=== PATIENT | male | born 1985 | race Caucasian/White ===

== ENCOUNTER 2021-06-19 17:35 | Emergency (ER) | payer OTHER, SELFPAY ==
[2021-06-19 19:20] VITALS: BP 118/60; PULSE 54; RESP 20; TEMP 36.8; O2SAT 100; BMI 25.8
--- NOTE | 2021-06-19 20:07 | HMH.EDUTC ---
[facility] [place] Clinical Impression: Encounter for laboratory testing for COVID-19 virus Disposition: Home, Self-Care Condition on Discharge: Good Instructions: DI for COVID-19 (Suspected or Confirmed ), Coronavirus Disease 2019, Preventing the Spread of Coronavirus Discharge Instructions Additional Instructions: *Monitor Temp, Over the counter Motrin or Tylenol as directed/as needed Tylenol every 4 hours and Motrin every 6 hours (as long as your family doctor has told you that you can take it) for fever or pain. and straight to ER if unable to lower temp less than 101.0 after medication given Follow up IMMEDIATELY for new or worsening symptoms or no Noticeable improvement over the next 48-72 hours. 911 for difficulty breathing or swallowing You were tested for today for COVID19 your test result should be back in the next 24-48 hours, you may call to the [facility] to see if your test results are back in the next 48 hours [phone] [facility] hours are 9am-9pm You was given a handout with instructions for Self Quarantine and Self isolation for while you wait on test results and what to do if they are positive If you are positive the Health Dept will be contacting you also Make sure to take your Vitamins Vit. C Vit D and Zinc if you can take them Referrals: Provider,Referral, MD [Primary Care Provider] - As needed Time of Disposition: 20:09 Medical Decision Making - Luis Inquiry Pt receiving controlled substance: No Luis was queried for this patient: No Vital Signs: 06/19/21 19:20 Temperature 98.2 F Temperature Source Temporal Artery Scan Pulse Rate [Right Brachial] 54 L Respiratory Rate 20 Blood Pressure [Right Arm] 118/60 Blood Pressure Mean [Right Arm] 79 Blood Pressure Source [Right Arm] Automatic Cuff Blood Pressure Position [Right Arm] Sitting 02 Sat by Pulse Oximetry 100 Oxygen Delivery Method Room Air Orders (Tests/Meds): ORDERS Category Date Time Status Covid-19 Nasal PCR ([facility]) Routine Lab 06/19/21 19:16 Ordered [facility] [place] HPI - General Stated complaint: covid test Time Seen by Provider: 06/19/21 20:07 Mode of Arrival: Ambulatory Source of Information: Patient Limitations: No Limitations Description of Symptoms (Recalled from Triage Doc. by RN): COVID TEST, DENIES EXPOSURE OR SYMPTOMS HEENT Symptoms (Recalled from RN notes): No Resp Symptoms (Recalled from RN notes): No Skin Symptoms (Recalled from RN notes): No MS Symptoms (Recalled from RN notes): No Functional Status (Recalled from RN notes): WNL - History of Present Illness Provider Complaint: Patient states that his kids recently started school and one of them was in the room with another child that was coughing so he came in to get tested to make sure he doesnt have it so he can get the vaccine soon - Related Data Allergies Allergy/AdvReac Type Severity Reaction Status Date / Time No Known Allergies Allergy Verified 06/19/21 18:36 - Worker's Comp Is this a Worker's Comp case?: No [facility] History - Hepatitis A Screen Drug use history?: No High risk sexual behaviors?: No History of sexually transmitted infection?: No Currently employed?: No Childcare worker?: No Do you have indoor plumbing?: Yes Do you have electricity?: Yes Attestation statement:: This patient has been screened for Hepatitis A risk factors. I have reviewed the patient's past medical history: Yes Medical History: Denies:: Cancer, Diabetes Mellitus Type 1, Diabetes Mellitus Type 2, MRSA Amputation: No - Social History Smoking Status: Unknown if ever smoked Tobacco Type: smokeless tobacco # Packs/Day (cigarettes): 0 Alcohol Intake: never Occupational Status: employed Housing: house Household Members: spouse, children ROS Obtained: Yes All systems reviewed & no additional complaints, Yes Systems reviewed as appropriate & no additional complaints - Constitutional Constitutional: Reports system reviewed and no additional complaints, except as do
[2021-06-19 20:08] VITALS: BP 118/60; PULSE 54; RESP 20; TEMP 36.8; O2SAT 100
== END 2021-06-19 20:16 | disposition home or self-care (01) ==
PROVIDERS: Emergency Provider Nurse Practitioner
DX: Z20.822 Contact with and (suspected) exposure to COVID-19 (principal)
CPT/HCPCS: 99202; G0463; U0003

== ENCOUNTER 2023-12-19 07:50 | Emergency (ER) | payer OTHER, SELFPAY ==
[2023-12-19 08:01] VITALS: BP 141/86; PULSE 81; RESP 16; TEMP 36.8; O2SAT 97; BMI 26.4
--- NOTE | 2023-12-19 08:02 | ED_ITS ---
Discharge Plan Disposition Patient Disposition: Home, Self-Care Condition: Good Prescriptions Prescriptions: New ibuprofen 400 mg tablet 400 mg PO Q6H PRN (Reason: pain, fever) Qty: 30 0RF Referrals Follow up/Referrals: Provider,Referral, MD [Primary Care Provider] - See instructions Activity Restrictions/Add. Instructions Additional Instructions/Restrictions: You were evaluated in the ER. You are appropriate for discharge at this time. Take Tylenol or ibuprofen if needed for pain and fever. DayQuil and NyQuil have Tylenol in them, so do not take additional Tylenol if you are taking these medications. Drink plenty of water and get extra rest in order to recover sooner. Find the results of your viral swab in the patient portal. Make an appointment with your primary care physician for reevaluation in a few days. Return to the ER with new, worsening, or otherwise concerning symptoms. Clinical Impressions Clinical Impression: Congested nose, Body aches Stand Alone Forms Stand Alone Forms: Work/School Release Discharge ED Provider: Chely Loco General Adult HPI General Stated complaint: body aches, weak, chills Time Seen by Provider: 12/19/23 07:54 History of Present Illness HPI narrative: Otherwise healthy 38-year-old male presents to the ER with concerns of congestion and bodyaches. Patient states his symptoms onset yesterday. He sta reji he took NyQuil last night and DayQuil this morning. Patient states he does not know of any ill exposures but he does work. He would like viral testing and a work note. He denies any fevers, vomiting, diarrhea, chest pain, shortness of breath, or other associated symptoms at this time. Related Data Previous Rx's Medication Instructions Recorded ibuprofen 400 mg tablet 400 mg PO Q6H PRN pain, fever #30 12/19/23 tabs Allergies Allergy/AdvReac Type Severity Reaction Status Date / Time No Known Allergies Allergy Verified 06/19/21 18:36 [facility] Disclaimer: The information contained in this section may have been updated after the patient was seen, as this information can be updated by other users. Social History Smoking Status: Unknown if ever smoked second hand exposure: No alcohol intake: never current occupational status: employed Travel in the last 8 weeks: Inside the [place] household members: spouse and children housing: house caffeine: No ROS Obtained: Yes All systems reviewed & no additional complaints except as do cumented Constitutional Constitutional: Reports body ache, Denies chills, Denies fever(s), Denies headache(s) and Denies weakness Eyes Eyes: Denies change in vision ENT Ears, Nose, Mouth, and Throat: Denies dizziness, Denies headache(s), Reports nasal congestion and Denies sore throat Cardiovascular Cardiovascular: Denies chest pain, Denies dyspnea and Denies leg edema Respiratory Respiratory: Denies cough and Denies dyspnea Gastrointestinal Gastrointestingal: Denies constipation, diarrhea, nausea or vomiting Genitourinary Male Genitourinary: Denies difficulty urinating Musculoskeletal Musculoskeletal: Denies arthralgias, Denies myalgias, Denies numbness and Denies tingling Integumentary/Breasts Skin/Breast: Denies change in pigmentation Neurologic Neurologic: Denies dizziness, Denies headache(s), Denies numbness, Denies tingling and Denies weakness Physical Exam General General appearance: alert and in no apparent distress Head Head exam: atraumatic and normocephalic Eye Eye exam: Present PERRL and EOMI ENT ENT exam: Present mucous membranes moist Neck Neck exam: Present normal inspection and full ROM Chest Chest inspection: Present symmetric chest wall rise Respiratory Respiratory exam: Present normal lung sounds bilaterally; Absent respiratory distress or stridor Cardiovascular Cardiovascular exam: Present regular rate and normal rhythm Abdominal Exam Abdominal exam: Present soft; Absent distention, tenderness, guarding or rebound Extremities Exam Extremities exam: Present full ROM Neurological Exam Neurological exam: Present alert and oriented X3; Absent motor sensory deficit Psychiatric Psychiatric exam: Present normal affect and normal mood Skin Skin exam: Present warm and dry Medical Decision Making Medical Records Medical records reviewed: Yes I reviewed the patient's medical records. Luis Inquiry Pt receiving controlled substance: No Orders (Tests/Meds): ED MEDICATIONS Discontinued Medications Generic Name Dose Route Start Last Admin Trade Name Freq PRN Reason Stop Dose Admin Ibuprofen 600 mg 12/19/23 07:58 Ibuprofen 600 Mg Tablet PO 12/19/23 07:59 ONCE ONE ORDERS Category Date Time Status Rapid PCR Covid and Flu A/B Stat Lab 12/19/23 07:58 Ordered Medical Decision Narrative: In summary, 38-year-old male presents to the ER with concerns of 1 day of bodyaches and congestion. Differential diagnosis includes but is not limited to viral syndrome including COVID, influenza, other virus, I did consider other etiologies such as dehydration, muscle spasm, however the onset of his symptoms is most convincing for a viral process. Patient has been able to tolerate oral intake and has not had any volume losses. Low suspicion for dehydration or electrolyte abnormalities. On exam patient is in no acute distress, hemodynamically stable, afebrile. Lungs clear to auscultation bilaterally, abdomen soft, nontender, nondistended, no findings of traumatic injury on exam, GCS 15, no focal deficits. Patient did request viral testing and a work note. COVID/flu swab was sent out. Patient has no comorbidities that would increase his risk for complications of these viruses. We discussed management of these viruses if they are present and patient is comfortable with the plan for discharge and [id number] management. I did prescribe ibuprofen for the patient as he only has NyQuil/DayQuil at home. I instructed him to find the results of the viral swab in the patient portal. Patient was given instructions on symptomatic management, follow up instructions, and return precautions for the emergency department. Patient indicated understanding and was discharged in stable condition. Critical Care Critical Care Time Critical Care Time: No
[2023-12-19 08:08] LABS: Coronavirus 19, PCR Not Detected (NotDetected); Influenza A, PCR Not Detected (NotDetected)
[2023-12-19] MEDS: IBUPROFEN 600 MG TABLET PO (08:15)
[2023-12-19 08:19] VITALS: BP 146/83; PULSE 71; RESP 16; TEMP 36.8; O2SAT 93
[2023-12-19 08:40] LABS: Influenza B, PCR Detected (NotDetected)
== END 2023-12-19 08:20 | disposition home or self-care (01) ==
PROVIDERS: Emergency Provider Emergency Medicine
DX: J10.1 Influenza due to other identified influenza virus with other respiratory manifestations (principal); R09.81 Nasal congestion; M79.18 Myalgia, other site
CPT/HCPCS: 87636; 99283

== ENCOUNTER 2025-09-13 18:06 | Observation (INO) | payer OTHER, SELFPAY ==
[2025-09-13 18:22] VITALS: BP 132/98; PULSE 79; RESP 18; TEMP 36.8; O2SAT 97; BMI 24.4
[2025-09-13 18:39] LABS: Microscopic, Urine URINE MICROSCOPIC (MICROSCOPIC)
[2025-09-13 18:40] LABS: Color,Urine YELLOW (Yellow); Glucose,Urine (UA) Negative (Negative); Ketones,Urine 1+ (Negative); Leukocyte Esterase,Urine Negative (Negative); PH,Urine 6.0 (5.0-8.5); Protein,Urine Negative (Negative); Urobilinogen,Urine 0.2 EU/dl (0.2)
--- NOTE | 2025-09-13 18:45 | CT_ITS ---
PROCEDURE INFORMATION: Exam: CT Abdomen And Pelvis With Contrast Exam date and time: 09/13/2025 7:28 PM Age: 40 years old Clinical indication: Abdominal pain; Additional info: Rlq pain, possible appendicitis TECHNIQUE: Imaging protocol: Computed tomography of the abdomen and pelvis with contrast. Radiation optimization: All CT scans at this facility use at least one of these dose optimization techniques: automated exposure control; mA and/or kV adjustment per patient size (includes targeted exams where dose is matched to clinical indication); or iterative reconstruction. Contrast material: ISOVUE; Contrast volume: 75 ml; Contrast route: IV; COMPARISON: CR XR LUMBAR SPINE 2-3V 01/26/2020 1:09 PM FINDINGS: Liver: Normal. No mass. Gallbladder and biliary ducts: Normal. No calcified stones. No ductal dilation. Pancreas: Normal. No ductal dilation. Spleen: Normal. No splenomegaly. Adrenal glands: Normal. No mass. Kidneys and ureters: Normal. No hydronephrosis. Stomach and bowel: Moderate thickening and inflammatory changes of the cecum colon which can be seen with infectious or inflammatory colitis. Appendix: Mild thickening at the base of the appendix with the appendix measuring 5 mm in diameter without inflammatory changes, and containing appendicoliths. Intraperitoneal space: Unremarkable. No free air. No significant fluid collection. Vasculature: Unremarkable. No abdominal aortic aneurysm. Lymph nodes: Unremarkable. No enlarged lymph nodes. Urinary bladder: Unremarkable as visualized. Reproductive: Unremarkable as visualized. Bones/joints: Mild loss of intervertebral disc space with degenerative changes involving L3 through S1. Soft tissues: Normal. IMPRESSION: 1. Moderate thickening and inflammatory changes involving the cecum of the colon which can be seen with infectious or inflammatory colitis. 2. Mild thickening at the base of the appendix with the appendix measuring 5 mm in diameter without inflammatory changes, and containing appendicoliths.
--- NOTE | 2025-09-13 18:46 | ED_ITS ---
Discharge Plan Disposition Patient Disposition: Admitted Prescriptions Prescriptions: No Action ibuprofen 400 mg tablet 400 mg PO Q6H PRN (Reason: pain, fever) Qty: 30 0RF Referrals Follow up/Referrals: Provider,Referral, [Primary Care Provider, Medical] - See instructions Clinical Impressions Clinical Impression: Colitis, Abdominal pain, RLQ, Hematuria Instructions Patient Instructions: DI for Acute Abdominal Pain Print Language Print Language: Qatari Discharge ED Provider: Jarad Cormier General Adult HPI General Chief complaint: Abdominal Pain Stated complaint: abdominal pain x 3 days Time Seen by Provider: 09/13/25 18:35 Mode of Arrival: Ambulatory Source of Information: Patient Description of Symptoms (Recalled from ER Triage Doc. by RN): patient presents for abdominal apoin that wraps around his back. the patient stated 4 weeks ago that he noticed his right testicle was more swollen than the other. he denies any urinary issues other than black urine the patient stated his abodminal pain started in the last few days and is intermittent in nature. when the pain starts it is severe and a 10/10. History of Present Illness HPI narrative: Sergio Delgado is a 40y male with a history of previous brain surgery but not on any medication who presents to the emergency department for complaints of abdominal pain. Patient states that 4 weeks ago, he had pain in his right testicle that lasted for approximately a week. He states that he has since not had any testicle pain. Started 3 days ago, he started develop lower abdominal pain that is worse on the right side. He states that today it got more severe and is worse with movements and bumps in the road. He reports objective fevers. He states that his stool was loose and dark today. He also notes dark urine. He has not had any abdominal surgeries. Related Data Previous Rx's ?Medication ?Instructions ?Recorded ibuprofen 400 mg tablet 400 mg PO Q6H PRN pain, feve r #30 12/19/23 tabs Allergies Allergy/AdvReac Type Severity Reaction Status Date / Time No Known Allergies Allergy Verified 12/19/23 08:12 [facility] Disclaimer: The information contained in this section may have been updated after the patient was seen, as this information can be updated by other users. Social History Smoking Status: Heavy tobacco smoker tobacco type: smokeless tobacco second hand exposure: No alcohol intake: never current occupational status: employed Travel in the last 8 weeks?: [place] the [place] household members: spouse and children housing: house caffeine: No Have you lived/traveled outside [place] in past 30 days?: No Contact w/someone who lives/traveled outside [place] past 30 days?: No Exposure to someone with infectious disease in past 14 days?: No Do you have a fever (greater than 100.4 F or 38 C)?: No Have you tested positive for COVID-19?: No Exposed to someone with COVID-19 in past 14 days?: No Do you have a sore throat?: No Do you have a cough?: No Do you have any weakness?: No Do you have any diarrhea?: No Are you experiencing any unusual bleeding?: No Do you have any muscle aches/pain?: No Do you have any abdominal pain?: No Are you experiencing loss of taste or smell?: No ROS Obtained: Yes Systems reviewed as appropriate & no additional complaints except as documented Physical Exam General General appearance: alert and in no apparent distress Head Head exam: atraumatic Eye Eye exam: Present normal appearance ENT ENT exam: Present normal external ear exam Neck Neck exam: Present full ROM Chest Chest inspection: Present symmetric chest wall rise Respiratory Respiratory exam: Present normal lung sounds bilaterally; Absent respiratory distress, wheezes or stridor Cardiovascular Cardiovascular exam: Present regular rate and normal rhythm Abdominal Exam Abdominal exam: Present soft, tenderness (Right lower quadrant), guarding (Right lower quadrant), obturator sign, heel tap sign, Rovsing's sign and tenderness at McBurney's Point; Absent rebound exam: Present normal inspection, normal testicular lie and circumcised; Absent testicular tenderness, urethral discharge or scrotal swelling Extremities Exam Extremities exam: Present normal inspection Back Exam Back exam: Present normal inspection Neurological Exam Neurological exam: Present alert and oriented X3 Psychiatric Psychiatric exam: Present normal affect Skin Skin exam: Present warm and dry Medical Decision Making Medical Records Screening: Per USPSTF and CDC recommendations, given the prevalence of disease in our region, it is our hospital?s policy to screen for HIV and viral Hepatitis for all patients aged 18 and over and those with ongoing risk factors. Luis Inquiry Pt receiving controlled substance: No Vital Signs: 09/13/25 18:22 Temperature 98.2 F Temperature Source Oral Pulse Rate [Right Radial] 79 Respiratory Rate 18 Blood Pressure [Right Arm] 132/98 H Blood Pressure Mean [Right Arm] 109 Blood Pressure Source [Right Arm] Automatic Cuff Blood Pressure Position [Right Arm] Sitting 02 Sat by Pulse Oximetry 97 Oxygen Delivery Method Room Air Lab Data Lab Results 09/13/25 18:29: Urine Color Yellow, Urine Appearance Sl cloudy, Urine pH 6.0, Ur Specific Mccracken >= 1.030, Urine Protein Negative, Urine Glucose (UA) Negative, Urine Ketones 1+, Urine Blood 2+ A, Urine Nitrate Negative, Urine Bilirubin Negative, Urine Urobilinogen 0.2, Ur Leukocyte Esterase Negative, Urine RBC 20- 50, Urine WBC 3-5, Ur Squamous Epith Cells 5-10, Urine Bacteria 1+, Urine Mucus 4+ 09/13/25 18:40: WBC 14.6 H, RBC 4.56 L, Hgb 14.2, Hct 40.4 L, MCV 88.6, MCH 31.1, MCHC 35.1, RDW 12.9, Plt Count 223, MPV 10.8 H, Neut % (Auto) 64.0, Lymph % (Auto) 21.9, Mcclain % (Auto) 9.2, Eos % (Auto) 3.9, Baso % (Auto) 0.5, Neut # (Auto) 9.3 H, Lymph # (Auto) 3.2, Mcclain # (Auto) 1.3 H, Eos # (Auto) 0.6 H, Baso # (Auto) 0.1, Sodium 137, Potassium 4.1, Chloride 103, Carbon Dioxide 26, Anion Gap 12.1, BUN 24 H, Creatinine 1.10, Estimated Creat Clear 104, Estimated GFR 75, Est GFR ( Amer) 90, Glucose 83, Lactate 0.6 L, Calcium 10.0, Total Bilirubin 1.8 H, AST 35, ALT 35, Alkaline Phosphatase 55, C-Reactive Protein 2.4, Total Protein 7.9, Albumin 4.7, Globulin 3.2, Albumin/Globulin Ratio 1.5, Lipase 97 09/13/25 18:40 09/13/25 18:40 Orders (Tests/Meds): ED MEDICATIONS Discontinued Medications Generic Name Dose Route Start Last Admin Trade Name Freq PRN Reason Stop Dose Admin Lactated Ringer's 1,000 mls @ 999 mls/hr 09/13/25 18:45 09/13/25 19:00 Lactated Ringer's 1000 Ml Bag IV 09/13/25 19:45 999 mls/hr .Q1H1M ONE Administration Piperacillin Sod/Tazobactam 100 mls @ 200 mls/hr 09/13/25 20:19 Sod 4.5 gm/ Sodium Chloride IV 09/13/25 20:48 ONCE ONE Iopamidol 75 ml 09/13/25 19:29 09/13/25 19:30 Iopamidol-370 (76%);100ml Bottle IV 09/13/25 19:30 75 ml ONCE ONE Administration Ketorolac Tromethamine 15 mg 09/13/25 20:41 Ketorolac 15mg/Ml Vial IV 09/13/25 20:42 ONCE ONE Morphine Sulfate 4 mg 09/13/25 19:09 09/13/25 19:17 Morphine 4mg/Ml Syringe IV 09/13/25 19:10 4 mg ONCE ONE Administration Sodium Chloride 10 ml 09/13/25 19:29 09/13/25 19:30 Sodium Chloride 0.9% 10ml Syr (Rad Only) IV 09/13/25 19:30 10 ml ONCE ONE Administration ORDERS Category Date Time Status CT abdomen pelvis w con Stat Cat Scan 09/13/25 18:45 Completed CBC w/Auto Diff [Complete Blood Count Auto Diff] Stat Lab 09/13/25 18:40 Completed CMP [Comprehensive Metabolic Panel] Stat Lab 09/13/25 18:40 Completed CRP [C-Reactive Protein] Stat Lab 09/13/25 18:40 Completed Lactic Acid Stat Lab 09/13/25 18:40 Completed Lipase Stat Lab 09/13/25 18:40 Completed UA [Urinalysis and Microscopic] Stat Lab 09/13/25 18:29 Completed Medical Decision Narrative: Sergio Delgado is a 40y male with a history of previous brain surgery but not on any medication who presents to the emergency department for complaints of abdominal pain. Patient states that 4 weeks ago, he had pain in his right testicle that lasted for approximately a week. He states that he has since not had any testicle pain. Started 3 days ago, he started develop lower abdominal pain that is worse on the right side. He states that today it got more severe and is worse with movements and bumps in the road. He reports objective fevers. He states that his stool was loose and dark today. He also notes dark urine. He has not had any abdominal surgeries. On arrival, patient is hemodynamically stable, afebrile, breathing comfortably on room air/saturation 97% SpO2. Physical exam, stated above, revealed overall well-appearing male in no distress. He has focal tenderness in the right lower quadrant with guarding in this area. Positive heeltap sign, positive obturator sign, positive Rovsing sign. Abdomen is nondistended and nonperitoneal. Cardiopulmonary exams unremarkable. Testicular exam is unremarkable with no masses, tenderness or swelling. Cremasteric reflex is normal. Patient denies any penile discharge and has no concerns for STIs at this time. Differential diagnosis includes, but is not limited to: Appendicitis, urinary tract affection, epididymitis, prostatitis, colitis, diverticulitis, GI bleed, among others. Low concern for testicular torsion given patient's lack of testicular pain at this time and normal testicular exam. Workup in the emergency department includes: UA, CRP, CBC with differential, CMP, lactic acid, lipase, CT abdomen pelvis with contrast, 1 L lactated ringer. Patient did state that his pain was worse and requested something for pain. He was given 4 mg of IV morphine. Patient's laboratory workup shows leukocytosis with white blood cell count of 14.6, elevated absolute neutrophils at 9.3. Monocytes mildly elevated 1.3. Electrolytes within normal limits. No CHANTAL. BUN mildly elevated at 24. Lactate normal at 0.6. Total bilirubin elevated at 1.8 but liver enzymes otherwise within normal limits. CRP normal at 2.4. Lipase normal at 97. Urinalysis shows 20-50 red blood cells but only 3-5 white blood cells. 1+ bacteria. Negative leukocyte esterase. Negative nitrate. CT imaging was interpreted by me personally. Patient has inflammatory changes around the cecum. Patient has appendicoliths. Per radiology, appendix measures 5 mm. Per radiology report: Moderate thickening and inflammatory changes involving the cecum of the colon which can be seen with infectious inflammatory colitis. Mild thickening at the base of the appendix with the appendix measuring 5 mm in diameter without inflammatory changes, and containing appendicoliths. Due to these findings, I did start the patient on 4.5 mg of IV Zosyn. Patient was continue to have pain and I gave 15 mg of IV Toradol. I did discuss patient's case with Dr. Jean Baptiste with the general surgery team who stated that this is likely more related to inflammation of the cecum but could possibly represent appendicitis. He recommended making the patient clear liquids until midnight and then n.p.o. at midnight. He will evaluate the patient in the morning. He agreed with continuing IV antibiotics. I discussed this with the patient and he was agreeable with being admitted at this time. I then discussed patient's case with Star George APRN with the hospital medicine service who agreed to admit the patient. Critical Care Critical Care Time Critical Care Time: No
[2025-09-13 18:51] LABS: Hematocrit 40.4 % (42.0-52.0); Hemoglobin 14.2 g/dL (14.1-18.0); Immature Granulocytes % 0.5 %; Mean Corpuscular HGB Conc 35.1 g/dL (31.8-35.4); Mean Corpuscular Hemoglobin 31.1 pg (27.0-31.2); Mean Corpuscular Volume 88.6 fl (80-94); Nucleated Red Blood Cells % 0 %; Platelet Count 223 K/mm3 (142-424); Red Blood Count 4.56 M/mm3 (4.60-6.20); Red Cell Distribution Width-SD 42.1 fL; White Blood Count 14.6 K/mm3 (4.8-10.8)
[2025-09-13 18:54] LABS: Bilirubin,Urine Negative (Negative); Specific Gravity, Urine >= 1.030 (1.005-1.030)
[2025-09-13 19:00] VITALS: BP 116/87; PULSE 79; O2SAT 98
[2025-09-13] MEDS: LACTATED RINGERS 1000ML 1,000 ML 999 ML IV (19:00)
[2025-09-13 19:04] LABS: Alanine Aminotransferase 35 U/L (12-78); Albumin Level 4.7 g/dl (3.5-5.0); Albumin/Globulin Ratio 1.5 (1.1-1.8); Alkaline Phosphatase 55 U/L (38-126); Anion Gap 12.1 mEq/L (5-15); Aspartate Amino Transferase 35 U/L (17-59); Bilirubin,Total 1.8 mg/dl (0.2-1.3); Blood Urea Nitrogen 24 mg/dl (9-20); Calcium 10.0 mg/dl (8.4-10.2); Carbon Dioxide 26 mmol/L (22.0-30.0); Chloride 103 mmol/L (98-107); Creatinine Clearance Estimated 104 mL/min (50-200); Creatinine,Serum 1.10 mg/dl (0.66-1.25); Estimated Glomerular Filt Rate 75 ml/min (>60); GFR (African American) 90 ML/MIN (>60); Globulin 3.2 g/dL (1.3-3.2); Glucose 83 mg/dl (74-100); Lipase 97 U/L (23-300); Potassium 4.1 mmoL/L (3.5-5.1); Sodium 137 mmol/L (136-145); Total Protein,Serum 7.9 g/dl (6.3-8.2)
[2025-09-13 19:09] LABS: C-Reactive Protein 2.4 mg/L (0-4)
--- NOTE | 2025-09-13 19:13 | PC.NURSE ---
Report received from Adams OLGUIN Pt awake alert and oriented Skin pink warm and dry Family at bedside Resp full and easy Speech clear and appropriate. Pt in SR per continuous heart monitor IV site without redness or edema. Pt requesting pain medication MD aware. Awaiting CT scan.
[2025-09-13 19:15] LABS: Bacteria,Urine 1+ /lpf; Mucus,Urine 4+ /lpf; RBC,Urine 20-50 #/hpf (0-3)
[2025-09-13] MEDS: MORPHINE 4MG/ML SYRINGE 4 MG IV (19:17)
[2025-09-13] MEDS: IOPAMIDOL-370 (76%);100ML BOTTLE 75 ML IV (19:30)
[2025-09-13] MEDS: SODIUM CHLORIDE 0.9% 10ML SYR (RAD ONLY) 10 ML IV (19:30)
[2025-09-13 19:42] VITALS: BP 114/71; PULSE 69; RESP 10; O2SAT 98
[2025-09-13 20:30] VITALS: BP 102/65; PULSE 67; RESP 12; O2SAT 98
--- NOTE | 2025-09-13 20:48 | PC.NURSE ---
Pt aware of plans for admission.
[2025-09-13] MEDS: PIPERACILLIN/TAZO 4.5 GM in 0.9 % SODIUM CHLORIDE 100 ML IV (21:01)
[2025-09-13] MEDS: LACTATED RINGERS 1000ML 1,000 ML 100 ML IV (21:05)
[2025-09-13] MEDS: KETOROLAC 15MG/ML VIAL 15 MG IV (21:05)
--- NOTE | 2025-09-13 21:32 | PC.NURSE ---
Report called Leroy OLGUIN Pt transported to inpatient unit via wheelchair by CORN COOKER
[2025-09-13 21:49] VITALS: BP 160/80; PULSE 80; RESP 20; TEMP 36.9; O2SAT 97
--- NOTE | 2025-09-13 21:52 | PC.NURSE ---
Patient arrived to floor via wheelchair from ED at 21:50.
--- NOTE | 2025-09-13 22:12 | P.HP_ITS ---
<Statement entered by Trevor Wayne MD - 09/14/25 13:26> Rounded on patient after nurse practitioner. Personally examined and interviewed patient. Agree with exam findings and care plan as documented. History of Present Illness *Admission Date: 09/13/25 *Reason for visit:: Abdominal pain *History of present illness: 40-year-old male patient presents to ER with right lower quadrant abdominal pain going across the lower abdomen to the left side. He has had this pain for about 3 to 4 days. Became much more severe today. Denies fever chills or bodyaches. Denies nausea vomiting or diarrhea. States the pain is worse with standing or sitting upright and feels better when he lays back. CT in the ER shows moderate thickening and inflammatory changes involving the cecum of the colon. Possibly colitis however there is also mild thickening at the base of the appendix, appendix is 5 mm in diameter containing appendicoliths. General surgery was consulted in the ER. Recommended admission, antibiotics and will reevaluate in the morning. He has no known medical history. [facility] Disclaimer: The information contained in this section may have been updated after the patient was seen, as this information can be updated by other users. Surgical History H/O brain surgery Social History Smoking Status: Heavy tobacco smoker tobacco type: smokeless tobacco second hand exposure: No alcohol intake: never current occupational status: employed Travel in the last 8 weeks?: Inside the [place] household members: spouse and children housing: house caffeine: No Have you lived/traveled outside US in past 30 days?: No Contact w/someone who lives/traveled outside US past 30 days?: No Exposure to someone with infectious disease in past 14 days?: No Do you have a fever (greater than 100.4 F or 38 C)?: No Have you tested positive for COVID-19?: No Exposed to someone with COVID-19 in past 14 days?: No Do you have a sore throat?: No Do you have a cough?: No Do you have any weakness?: No Do you have any diarrhea?: No Are you experiencing any unusual bleeding?: No Do you have any muscle aches/pain?: No Do you have any abdominal pain?: No Are you experiencing loss of taste or smell?: No Review of Systems Constitutional Constitutional: Denies body ache(s), Denies chills and Denies fever(s) Eyes Eyes: Reports system reviewed and no additional complaints, except as documented ENT Ears, Nose, Mouth, and Throat: Reports system reviewed and no additional co mplaints, except as documented *Cardiovascular Cardiovascular: Denies chest pain and Denies dyspnea *Respiratory Respiratory: Denies dyspnea *Gastrointestinal Gastrointestinal: Reports abdominal pain, Denies loose stools, Denies nausea and Denies vomiting Comments: Right lower quadrant abdominal pain that goes across the lower abdomen *Genitourinary Genitourinary: Denies difficulty urinating and Denies dysuria *Musculoskeletal Musculoskeletal: Reports system reviewed and no additional complaints, except as documented *Neurologic Neurologic: Reports system reviewed and no additional complaints, except as documented Meds Home Medications and Allergies Home Medications ?Medication ?Instructions ?Recorded ?Confirmed ?Type ibuprofen 400 mg tablet 400 mg PO Q6H PRN pain, feve r #30 12/19/23 09/13/25 Rx tabs New Prescriptions to Start Prescriptions: Allergies Allergy/AdvReac Type Severity Reaction Status Date / Time No Known Allergies Allergy Verified 12/19/23 08:12 Exam Data for Last 24 hours Vital signs and Labs for Last 24 Hours: Temp Pulse Resp BP Pulse Ox O2 Del Method 98.4 F 80 20 160/80 H 98 Room Air 09/13/25 21:49 09/13/25 21:49 09/13/25 21:49 09/13/25 21:49 09/13/25 20:30 09/13/25 21:49 Laboratory Results - last 24 hr 09/13/25 18:29: Urine Color Yellow, Urine Appearance Sl cloudy, Urine pH 6.0, Ur Specific [place] >= 1.030, Urine Protein Negative, Urine Glucose (UA) Negative, Urine Ketones 1+, Urine Blood 2+ A, Urine Nitrate Negative, Urine Bilirubin Negative, Urine Urobilinogen 0.2, Ur Leukocyte Esterase Negative, Urine RBC 20- 50, Urine WBC 3-5, Ur Squamous Epith Cells 5-10, Urine Bacteria 1+, Urine Mucus 4+ 09/13/25 18:40: WBC 14.6 H, RBC 4.56 L, Hgb 14.2, Hct 40.4 L, MCV 88.6, MCH 31.1, MCHC 35.1, RDW 12.9, Plt Count 223, MPV 10.8 H, Neut % (Auto) 64.0, Lymph % (Auto) 21.9, [place] % (Auto) 9.2, Eos % (Auto) 3.9, Baso % (Auto) 0.5, Neut # (Auto) 9.3 H, Lymph # (Auto) 3.2, [place] # (Auto) 1.3 H, Eos # (Auto) 0.6 H, Baso # (Auto) 0.1, Sodium 137, Potassium 4.1, Chloride 103, Carbon Dioxide 26, Anion Gap 12.1, BUN 24 H, Creatinine 1.10, Estimated Creat Clear 104, Estimated GFR 75, Est GFR ( Amer) 90, Glucose 83, Lactate 0.6 L, Calcium 10.0, Total Bilirubin 1.8 H, AST 35, ALT 35, Alkaline Phosphatase 55, C-Reactive Protein 2.4, Total Protein 7.9, Albumin 4.7, Globulin 3.2, Albumin/Globulin Ratio 1.5, Lipase 97 I & O for Last 24 hours: Intake & Output 09/10/25 09/11/25 09/12/25 09/13/25 23:59 23:59 23:59 23:59 Intake Total 1100 / 1100 Balance 1100 / 1100 Weight 81.647 kg Constitutional Constitutional: no acute distress *Routine HEENT Exam Head: Present normocephalic and atraumatic Eye: Present PERRL ENT: Present mucous membranes moist *Routine Neck Exam Neck: Present supple; Absent lymphadenopathy *Routine Respiratory Exam Respiratory: Present CTA bilaterally *Routine Cardiovascular Exam Cardiovascular: Present RRR, Normal S1 and Normal S2 *Routine Abdominal Exam Abdominal: Present soft, tenderness (Tenderness with palpation of the right lower quadrant) and guarding Comments: Positive Rovsing sign *Routine Rectal Exam Rectal:: deferred *Routine Genitalia Exam Genitalia:: deferred *Routine Extremities Exam Extremities: Present pulses intact; Absent edema *Routine Skin Exam Skin: Present intact and dry *Routine Neurological Exam Neurological: Present alert, oriented X3 and moving all extremities Assessment and Plan *Assessment and plan (1) Abdominal pain, RLQ: Status: Acute Category: Medical Code(s): R10.31 - Right lower quadrant pain (2) Colitis: Status: Acute Category: Medical Code(s): K52.9 - Noninfective gastroenteritis and colitis, unspecified (3) Hematuria: Status: Acute Qualifiers: Hematuria type: unspecified type Qualified Code(s): R31.9 - Hematuria, unspecified Category: Medical Code(s): R31.9 - Hematuria, unspecified Plan Patient presents with several days of right lower quadrant abdominal pain which became more severe today. CT findings suggest colitis versus acute appendicitis. General surgery was consulted in the ER and agrees to see in consult. I have agreed to accept this patient for admission for further workup and treatment. He we kept n.p.o. tonight until evaluated by surgery in the morning. He was given Zosyn in the ER and we will continue that per surgery's recommendations. Will continue IV fluids, morphine for pain and Zofran for nausea. He is also noted to have 2+ blood in his urine. Patient denies urinary complaints. May need follow-up outpatient.
[2025-09-13 22:15] VITALS: BP 130/79; PULSE 65; RESP 18; TEMP 36.7; O2SAT 96; BMI 21.7
[2025-09-13] MEDS: MORPHINE 2MG/ML SYRINGE 2 MG IV (22:18)
[2025-09-14] MEDS: MORPHINE 2MG/ML SYRINGE 2 MG IV ×4 (00:51→08:54)
[2025-09-14 04:00] VITALS: BP 128/74; PULSE 49; RESP 16; TEMP 36.5; O2SAT 98; BMI 21.7
[2025-09-14] MEDS: PIPERACILLIN/TAZO 4.5 GM in 0.9 % SODIUM CHLORIDE 100 ML IV ×3 (04:26→16:13)
--- NOTE | 2025-09-14 05:05 | PC.NURSE ---
Pt is A&OX4 and has tolerated room air. He has complained of abdominal pain multiple times this shift and was medicated per MAR. Receiving IV ABX. He has ambulated room independently. He has remained npo for surgery consult. No complaints at this time, call light within reach.
[2025-09-14] MEDS: LACTATED RINGERS 1000ML 1,000 ML 100 ML IV (06:13)
[2025-09-14 06:27] LABS: Hematocrit 35.0 % (42.0-52.0); Immature Granulocytes % 0.6 %; Mean Corpuscular HGB Conc 35.1 g/dL (31.8-35.4); Mean Corpuscular Hemoglobin 31.3 pg (27.0-31.2); Mean Corpuscular Volume 89.1 fl (80-94); Nucleated Red Blood Cells % 0 %; Platelet Count 167 K/mm3 (142-424); Red Blood Count 3.93 M/mm3 (4.60-6.20); Red Cell Distribution Width-SD 42.3 fL; White Blood Count 8.8 K/mm3 (4.8-10.8)
[2025-09-14 06:37] LABS: Alanine Aminotransferase 28 U/L (12-78); Albumin Level 3.9 g/dl (3.5-5.0); Albumin/Globulin Ratio 1.7 (1.1-1.8); Alkaline Phosphatase 48 U/L (38-126); Anion Gap 8.1 mEq/L (5-15); Aspartate Amino Transferase 30 U/L (17-59); Bilirubin,Total 2.3 mg/dl (0.2-1.3); Blood Urea Nitrogen 18 mg/dl (9-20); Calcium 9.3 mg/dl (8.4-10.2); Carbon Dioxide 26 mmol/L (22.0-30.0); Chloride 104 mmol/L (98-107); Creatinine Clearance Estimated 113 mL/min (50-200); Creatinine,Serum 0.90 mg/dl (0.66-1.25); Estimated Glomerular Filt Rate 94 ml/min (>60); GFR (African American) 114 ML/MIN (>60); Globulin 2.3 g/dL (1.3-3.2); Glucose 84 mg/dl (74-100); Potassium 4.1 mmoL/L (3.5-5.1); Sodium 134 mmol/L (136-145); Total Protein,Serum 6.2 g/dl (6.3-8.2)
[2025-09-14 06:50] LABS: Hemoglobin 12.4 g/dL (14.1-18.0)
[2025-09-14 08:00] VITALS: BP 122/89; PULSE 76; RESP 18; TEMP 36.6; O2SAT 97
[2025-09-14 08:30] VITALS: O2SAT 97
--- NOTE | 2025-09-14 08:39 | EXP.SURG.CON ---
History of Present Illness *Admission Date: 09/13/25 *Reason for visit:: Colitis (concerns for possible appendicitis) *History of present illness: Is a 40-year-old gentleman who presented to the emergency department with 3-4 days history of worsening abdominal pain and episodic dark loose stool . Evaluation clued a CT scan that revealed changes consistent with cecal colitis. Appendicolith and some inflammatory changes at the base of the appendix also noted. See HPI forwarded from admission H&P below. Currently, the patient feels better . He states that his abdominal pain has not resolved; however, it has improved significantly since admission. Forwarded from admission H&P: 40-year-old male patient presents to ER with right lower quadrant abdominal pain going across the lower abdomen to the left side. He has had this pain for about 3 to 4 days. Became much more severe today. Denies fever chills or bodyaches. Denies nausea vomiting or diarrhea. States the pain is worse with standing or sitting upright and feels better when he lays back. CT in the ER shows moderate thickening and inflammatory changes involving the cecum of the colon. Possibly colitis however there is also mild thickening at the base of the appendix, appendix is 5 mm in diameter containing appendicoliths. General surgery was consulted in the ER. Recommended admission, antibiotics and will reevaluate in the morning. He has no known medical history. [facility] Disclaimer: The information contained in this section may have been updated after the patient was seen, as this information can be updated by other users. Surgical History H/O brain surgery Social History Smoking Status: Heavy tobacco smoker tobacco type: smokeless tobacco second hand exposure: No alcohol intake: never current occupational status: employed Travel in the last 8 weeks?: [place] the [place] household members: spouse and children housing: house caffeine: No Have you lived/traveled outside US in past 30 days?: No Contact w/someone who lives/traveled outside US past 30 days?: No Exposure to someone with infectious disease in past 14 days?: No Do you have a fever (greater than 100.4 F or 38 C)?: No Have you tested positive for COVID-19?: No Exposed to someone with COVID-19 in past 14 days?: No Do you have a sore throat?: No Do you have a cough?: No Do you have any weakness?: No Do you have any diarrhea?: No Are you experiencing any unusual bleeding?: No Do you have any muscle aches/pain?: No Do you have any abdominal pain?: No Are you experiencing loss of taste or smell?: No Review of Systems Review of Systems Review of systems:: pertinent systems reviewed and negative unless documented below *Gastrointestinal Gastrointestinal: Reports as per HPI *Neurologic Neurologic: Reports system reviewed and no additional complaints, except as documented Meds Home Medications and Allergies Home Medications ?Medication ?Instructions ?Recorded ?Confirmed ?Type ibuprofen 400 mg tablet 400 mg PO Q6H PRN pain, fever #30 12/19/23 09/13/25 Rx tabs New Prescriptions to Start Prescriptions: Allergies Allergy/AdvReac Type Severity Reaction Status Date / Time No Known Allergies Allergy Verified 12/19/23 08:12 Exam (Inpt) Vital signs and Labs for Last 24 Hours: Temp Pulse Resp BP Pulse Ox O2 Del Method 97.9 F 76 18 122/89 97 Room Air 09/14/25 08:00 09/14/25 08:00 09/14/25 08:00 09/14/25 08:00 09/14/25 08:00 09/14/25 08:00 Laboratory Results - last 24 hr 09/13/25 18:29: Urine Color Yellow, Urine Appearance Sl cloudy, Urine pH 6.0, Ur Specific [place] >= 1.030, Urine Protein Negative, Urine Glucose (UA) Negative, Urine Ketones 1+, Urine Blood 2+ A, Urine Nitrate Negative, Urine Bilirubin Negative, Urine Urobilinogen 0.2, Ur Leukocyte Esterase Negative, Urine RBC 20-50, Urine WBC 3-5, Ur Squamous Epith Cells 5-10, Urine Bacteria 1+, Urine Mucus 4+ 09/13/25 18:40: WBC 14.6 H, RBC 4.56 L, Hgb 14.2, Hct 40.4 L, MCV 88.6, MCH 31.1, MCHC 35.1, RDW 12.9, Plt Count 223, MPV 10.8 H, Neut % (Auto) 64.0, Lymph % (Auto) 21.9, [place] % (Auto) 9.2, Eos % (Auto) 3.9, Baso % (Auto) 0.5, Neut # (Auto) 9.3 H, Lymph # (Auto) 3.2, [place] # (Auto) 1.3 H, Eos # (Auto) 0.6 H, Baso # (Auto) 0.1, Sodium 137, Potassium 4.1, Chloride 103, Carbon Dioxide 26, Anion Gap 12.1, BUN 24 H, Creatinine 1.10, Estimated Creat Clear 104, Estimated GFR 75, Est GFR ( Amer) 90, Glucose 83, Lactate 0.6 L, Calcium 10.0, Total Bilirubin 1.8 H, AST 35, ALT 35, Alkaline Phosphatase 55, C-Reactive Protein 2.4, Total Protein 7.9, Albumin 4.7, Globulin 3.2, Albumin/Globulin Ratio 1.5, Lipase 97 09/14/25 06:11: WBC 8.8 D, RBC 3.93 L, Hgb 12.4 L D, Hct 35.0 L, MCV 89.1, MCH 31.3 H, MCHC 35.1, RDW 12.9, Plt Count 167 D, MPV 10.2, Neut % (Auto) 55.0, Lymph % (Auto) 25.2, [place] % (Auto) 12.5 H, Eos % (Auto) 5.9, Baso % (Auto) 0.8, Neut # (Auto) 4.9, Lymph # (Auto) 2.2, [place] # (Auto) 1.1 H, Eos # (Auto) 0.5 H, Baso # (Auto) 0.1, Sodium 134 L, Potassium 4.1, Chloride 104, Carbon Dioxide 26, Anion Gap 8.1, BUN 18, Creatinine 0.90, Estimated Creat Clear 113, Estimated GFR 94, Est GFR ( Amer) 114 D, Glucose 84, Calcium 9.3, Total Bilirubin 2.3 H, AST 30, ALT 28, Alkaline Phosphatase 48, Total Protein 6.2 L, Albumin 3.9 D, Globulin 2.3, Albumin/Globulin Ratio 1.7 I & O for Labs for Last 24 Hours: Intake & Output 09/11/25 09/12/25 09/13/25 09/14/25 11:59 11:59 11:59 11:59 Intake Total 2163.333 / 2163.333 Output Total 0 / 0 Balance 2163.333 / 2163.333 Weight 160 lb 1.595 oz Constitutional: no acute distress Respiratory: Absent respiratory distress GI: Present soft and tenderness (Mild tenderness in right lower quadrant); Absent guarding, rebound or rigidity Results Labs 09/14/25 06:11 09/14/25 06:11 Labs: Laboratory Results - last 24 hr 09/13/25 18:29: Urine Color Yellow, Urine Appearance Sl cloudy, Urine pH 6.0, Ur Specific [place] >= 1.030, Urine Protein Negative, Urine Glucose (UA) Negative, Urine Ketones 1+, Urine Blood 2+ A, Urine Nitrate Negative, Urine Bilirubin Negative, Urine Urobilinogen 0.2, Ur Leukocyte Esterase Negative, Urine RBC 20-50, Urine WBC 3-5, Ur Squamous Epith Cells 5-10, Urine Bacteria 1+, Urine Mucus 4+ 09/13/25 18:40: WBC 14.6 H, RBC 4.56 L, Hgb 14.2, Hct 40.4 L, MCV 88.6, MCH 31.1, MCHC 35.1, RDW 12.9, Plt Count 223, MPV 10.8 H, Neut % (Auto) 64.0, Lymph % (Auto) 21.9, [place] % (Auto) 9.2, Eos % (Auto) 3.9, Baso % (Auto) 0.5, Neut # (Auto) 9.3 H, Lymph # (Auto) 3.2, [place] # (Auto) 1.3 H, Eos # (Auto) 0.6 H, Baso # (Auto) 0.1, Sodium 137, Potassium 4.1, Chloride 103, Carbon Dioxide 26, Anion Gap 12.1, BUN 24 H, Creatinine 1.10, Estimated Creat Clear 104, Estimated GFR 75, Est GFR ( Amer) 90, Glucose 83, Lactate 0.6 L, Calcium 10.0, Total Bilirubin 1.8 H, AST 35, ALT 35, Alkaline Phosphatase 55, C-Reactive Protein 2.4, Total Protein 7.9, Albumin 4.7, Globulin 3.2, Albumin/Globulin Ratio 1.5, Lipase 97 09/14/25 06:11: WBC 8.8 D, RBC 3.93 L, Hgb 12.4 L D, Hct 35.0 L, MCV 89.1, MCH 31.3 H, MCHC 35.1, RDW 12.9, Plt Count 167 D, MPV 10.2, Neut % (Auto) 55.0, Lymph % (Auto) 25.2, [place] % (Auto) 12.5 H, Eos % (Auto) 5.9, Baso % (Auto) 0.8, Neut # (Auto) 4.9, Lymph # (Auto) 2.2, [place] # (Auto) 1.1 H, Eos # (Auto) 0.5 H, Baso # (Auto) 0.1, Sodium 134 L, Potassium 4.1, Chloride 104, Carbon Dioxide 26, Anion Gap 8.1, BUN 18, Creatinine 0.90, Estimated Creat Clear 113, Estimated GFR 94, Est GFR ( Amer) 114 D, Glucose 84, Calcium 9.3, Total Bilirubin 2.3 H, AST 30, ALT 28, Alkaline Phosphatase 48, Total Protein 6.2 L, Albumin 3.9 D, Globulin 2.3, Albumin/Globulin Ratio 1.[address] scan - abdomen: report reviewed and image reviewed CT scan - pelvis: report reviewed and image reviewed Assessment and Plan *Assessment and plan (1) Colitis: Status: Acute Category: Medical Code(s): K52.9 - Noninfective gastroenteritis and colitis, unspecified (2) Abdominal pain, RLQ: Status: Acute Category: Medical Code(s): R10.31 - Right lower quadrant pain Plan The patient has a normal-sized appendix and no periappendiceal inflammation per CT scan. The inflammatory changes at the base of the appendix are C/W cecal inflammatory changes. After multiple days of symptomatology, the patient continues to have a white blood cell count that is normal (no left shift). His current radiographic findings, lab findings, and physical exam findings are all more consistent with cecal colitis. I discussed the risks and benefits of surgical intervention. I discussed the risks of possible missed diagnosis . He understands the presence of appendicoliths and potential risk for appendicitis in the future. Continue overall management as per primary service Complete course of antibiotics Follow-up stool panel
--- NOTE | 2025-09-14 08:58 | HMH.PHAAMS2 ---
- Antimicrobial Stewardship Review culture & sensitivity review Stewardship interventions: culture & sensitivity review, reviewed - no change Comments: NO CULTURES PENDING, ZOSYN EMPIRICALLY FOR ACUTE ABDOMEN
[2025-09-14 14:40] LABS: Alanine Aminotransferase 29 U/L (12-78); Albumin Level 4.1 g/dl (3.5-5.0); Albumin/Globulin Ratio 1.7 (1.1-1.8); Alkaline Phosphatase 51 U/L (38-126); Anion Gap 7.3 mEq/L (5-15); Aspartate Amino Transferase 33 U/L (17-59); Bilirubin,Total 2.6 mg/dl (0.2-1.3); Blood Urea Nitrogen 17 mg/dl (9-20); Calcium 9.2 mg/dl (8.4-10.2); Carbon Dioxide 28 mmol/L (22.0-30.0); Chloride 103 mmol/L (98-107); Creatinine Clearance Estimated 93 mL/min (50-200); Creatinine,Serum 1.10 mg/dl (0.66-1.25); Estimated Glomerular Filt Rate 75 ml/min (>60); GFR (African American) 90 ML/MIN (>60); Globulin 2.4 g/dL (1.3-3.2); Glucose 84 mg/dl (74-100); Potassium 4.3 mmoL/L (3.5-5.1); Sodium 134 mmol/L (136-145); Total Protein,Serum 6.5 g/dl (6.3-8.2)
--- NOTE | 2025-09-14 15:48 | P.DS_ITS ---
<Statement entered by Trevor Wayne MD - 09/14/25 16:49> Rounded on patient after nurse practitioner. Personally examined and interviewed patient. Agree with exam findings and care plan as documented. General Admission date:: 09/13/25 Discharge date: 09/14/25 HPI HPI HPI: Is a 40-year-old gentleman who presented to the emergency department with 3-4 days history of worsening abdominal pain and episodic dark loose stool . Evaluation clued a CT scan that revealed changes consistent with cecal colitis. Appendicolith and some inflammatory changes at the base of the appendix also no angelica. See HPI forwarded from admission H&P below. Currently, the patient feels better . He states that his abdominal pain has not resolved; however, it has improved significantly since admission. Forwarded from admission H&P: 40-year-old male patient presents to ER with right lower quadrant abdominal pain going across the lower abdomen to the left side. He has had this pain for about 3 to 4 days. Became much more severe today. Denies fever chills or bodyaches. Denies nausea vomiting or diarrhea. States the pain is worse with standing or sitting upright and feels better when he lays back. CT in the ER shows moderate thickening and inflammatory changes involving the cecum of the colon. Possibly colitis however there is also mild thickening at the base of the appendix, appendix is 5 mm in diameter containing appendicoliths. General surgery was consulted in the ER. Recommended admission, antibiotics and will reevaluate in the morning. He has no known medical history. Hospital Course Hospital Course Hospital Course: Mr. Delgado presented to the emergency department yesterday evening with complaints of right lower quadrant abdominal pain for several days. He states the pain had gotten worse and he felt he should be evaluated. Initial lab work findings were significant for WBC of 14.6, no electrolyte abnormalities, normal kidney function, total bilirubin 1.8 but LFTs within normal limits. Patient had abdomen/pelvis CT which showed inflammatory changes around the cecum, moderate thickening involving the cecum of the colon which could be infectious, inflammatory, colitis. Mild thickening at the base of the appendix significant for appendicoliths. Patient was started on Zosyn IV and the case was discussed with general surgery who recommended admission for observation and possible surgical intervention. Patient was admitted to the medical surgical floor overnight and continued to receive Zosyn every 6 hours IV. Repeat lab work this morning was significant for reduced leukocytosis, WBC 8.8. No electrolyte abnormalities, normal kidney function. Bilirubin still elevated at 2.3. Patient asymptomatic and lipase and LFTs normal. Patient continued to deny abdominal pain or tenderness during admission. Tolerated a full liquid breakfast and regular lunch tray. Has been able to eat and drink without issues, nausea, vomiting, diarrhea. Patient denies any further symptoms. Dr. Brush assessed patient and at this time does not feel surgical intervention is necessary. He does note that although it is not currently necessary he could be at potential risk for further appendicitis issues. These findings were discussed with the patient and he was monitored throughout the day. Patient requests to go home and states he feels back to baseline. Discharge patient home on Augmentin to complete a 5-day total course. Patient will follow-up with general surgery next week. Strict instructions were given for return, severe abdominal pain, nausea, vomiting, fever, chills. Patient and spouse verbalize understanding. Patient remained hemodynamically stable during admission, afebrile. Total time spent on discharge 32 minutes in counseling, documentation, chart review, and direct care with patient. Exam Data for Last 24 hours Vital signs and Labs for Last 24 Hours: Temp Pulse Resp BP Pulse Ox O2 Del Method 97.9 F 76 18 122/89 97 Room Air 09/14/25 08:00 09/14/25 08:00 09/14/25 08:00 09/14/25 08:00 09/14/25 08:30 09/14/25 13:30 Laboratory Results - last 24 hr 09/13/25 18:29: Urine Color Yellow, Urine Appearance Sl cloudy, Urine pH 6.0, Ur Specific [place] >= 1.030, Urine Protein Negative, Urine Glucose (UA) Negative, Urine Ketones 1+, Urine Blood 2+ A, Urine Nitrate Negative, Urine Bilirubin Negative, Urine Urobilinogen 0.2, Ur Leukocyte Esterase Negative, Urine RBC 20- 50, Urine WBC 3-5, Ur Squamous Epith Cells 5-10, Urine Bacteria 1+, Urine Mucus 4+ 09/13/25 18:40: WBC 14.6 H, RBC 4.56 L, Hgb 14.2, Hct 40.4 L, MCV 88.6, MCH 31.1, MCHC 35.1, RDW 12.9, Plt Count 223, MPV 10.8 H, Neut % (Auto) 64.0, Lymph % (Auto) 21.9, Wake % (Auto) 9.2, Eos % (Auto) 3.9, Baso % (Auto) 0.5, Neut # (Auto) 9.3 H, Lymph # (Auto) 3.2, Wake # (Auto) 1.3 H, Eos # (Auto) 0.6 H, Baso # (Auto) 0.1, Sodium 137, Potassium 4.1, Chloride 103, Carbon Dioxide 26, Anion Gap 12.1, BUN 24 H, Creatinine 1.10, Estimated Creat Clear 104, Estimated GFR 75, Est GFR ( Amer) 90, Glucose 83, Lactate 0.6 L, Calcium 10.0, Total Bilirubin 1.8 H, AST 35, ALT 35, Alkaline Phosphatase 55, C-Reactive Protein 2.4, Total Protein 7.9, Albumin 4.7, Globulin 3.2, Albumin/Globulin Ratio 1.5, Lipase 97 09/14/25 06:11: WBC 8.8 D, RBC 3.93 L, Hgb 12.4 L D, Hct 35.0 L, MCV 89.1, MCH 31.3 H, MCHC 35.1, RDW 12.9, Plt Count 167 D, MPV 10.2, Neut % (Auto) 55.0, Lymph % (Auto) 25.2, Wake % (Auto) 12.5 H, Eos % (Auto) 5.9, Baso % (Auto) 0.8, Neut # (Auto) 4.9, Lymph # (Auto) 2.2, Wake # (Auto) 1.1 H, Eos # (Auto) 0.5 H, Baso # (Auto) 0.1, Sodium 134 L, Potassium 4.1, Chloride 104, Carbon Dioxide 26, Anion Gap 8.1, BUN 18, Creatinine 0.90, Estimated Creat Clear 113, Estimated GFR 94, Est GFR ( Amer) 114 D, Glucose 84, Calcium 9.3, Total Bilirubin 2.3 H, AST 30, ALT 28, Alkaline Phosphatase 48, Total Protein 6.2 L, Albumin 3.9 D, Globulin 2.3, Albumin/Globulin Ratio 1.7 09/14/25 14:25: Sodium 134 L, Potassium 4.3, Chloride 103, Carbon Dioxide 28, Anion Gap 7.3, BUN 17, Creatinine 1.10 D, Estimated Creat Clear 93, Estimated GFR 75, Est GFR ( Amer) 90 D, Glucose 84, Calcium 9.2, Total Bilirubin 2.6 H, AST 33, ALT 29, Alkaline Phosphatase 51, Total Protein 6.5, Albumin 4.1, Globulin 2.4, Albumin/Globulin Ratio 1.7 I & O for Last 24 hours: Intake & Output 09/11/25 09/12/25 09/13/25 09/14/25 23:59 23:59 23:59 23:59 Intake Total 1100 / 1150 1763.333 / 1763.333 Output Total 0 / 0 Balance 1100 / 1150 1763.333 / 1763.333 Weight 72.62 kg 72.62 kg Constitutional Constitutional: no acute distress, average body habitus, chronically ill appearing and cooperative *Routine HEENT Exam Head: Present normocephalic Eye: Present EOMI and PERRL ENT: Present mucous membranes moist; Absent dentition normal (Poor dentition) *Routine Neck Exam Neck: Present supple; Absent lymphadenopathy *Routine Respiratory Exam Respiratory: Present CTA bilaterally *Routine Cardiovascular Exam Cardiovascular: Present RRR *Routine Abdominal Exam Abdominal: Present soft and normoactive bowel sounds; Absent tenderness *Routine Extremities Exam Extremities: Absent cyanosis, clubbing or edema *Routine Skin Exam Skin: Present warm; Absent rash *Routine Neurological Exam Neurological: Present alert and oriented X3 Results Data Completed and Pending Labs on day of discharge: Labs from last 24 hours 09/14/25 09/14/25 09/13/25 14:25 06:11 18:40 WBC 8.8 D 14.6 H RBC 3.93 L 4.56 L Hgb 12.4 L D 14.2 Hct 35.0 L 40.4 L MCV 89.1 88.6 MCH 31.3 H 31.1 MCHC 35.1 35.1 RDW 12.9 12.9 Plt Count 167 D 223 MPV 10.2 10.8 H Neut % (Auto) 55.0 64.0 Lymph % (Auto) 25.2 21.9 Wake % (Auto) 12.5 H 9.2 Eos % (Auto) 5.9 3.9 Baso % (Auto) 0.8 0.5 Neut # (Auto) 4.9 9.3 H Lymph # (Auto) 2.2 3.2 Wake # (Auto) 1.1 H 1.3 H Eos # (Auto) 0.5 H 0.6 H Baso # (Auto) 0.1 0.1 Sodium 134 L 134 L 137 Potassium 4.3 4.1 4.1 Chloride 103 104 103 Carbon Dioxide 28 26 26 Anion Gap 7.3 8.1 12.1 BUN 17 18 24 H Creatinine 1.10 D 0.90 1.10 Estimated Creat Clear 93 113 104 Estimated GFR 75 94 75 Est GFR ( Amer) 90 D 114 D 90 Glucose 84 84 83 Lactate 0.6 L Calcium 9.2 9.3 10.0 Total Bilirubin 2.6 H 2.3 H 1.8 H AST 33 30 35 ALT 29 28 35 Alkaline Phosphatase 51 48 55 C-Reactive Protein 2.4 Total Protein 6.5 6.2 L 7.9 Albumin 4.1 3.9 D 4.7 Globulin 2.4 2.3 3.2 Albumin/Globulin Ratio 1.7 1.7 1.5 Lipase 97 Urine Color Urine Appearance Urine pH Ur Specific [place] Urine Protein Urine Glucose (UA) Urine Ketones Urine Blood Urine Nitrate Urine Bilirubin Urine Urobilinogen Ur Leukocyte Esterase Urine RBC Urine WBC Ur Squamous Epith Cells Urine Bacteria Urine Mucus 09/13/25 18:29 WBC RBC Hgb Hct MCV MCH MCHC RDW Plt Count MPV Neut % (Auto) Lymph % (Auto) Wake % (Auto) Eos % (Auto) Baso % (Auto) Neut # (Auto) Lymph # (Auto) Wake # (Auto) Eos # (Auto) Baso # (Auto) Sodium Potassium Chloride Carbon Dioxide Anion Gap BUN Creatinine Estimated Creat Clear Estimated GFR Est GFR ( Amer) Glucose Lactate Calcium Total Bilirubin AST ALT Alkaline Phosphatase C-Reactive Protein Total Protein Albumin Globulin Albumin/Globulin Ratio Lipase Urine Color Yellow Urine Appearance Sl cloudy Urine pH 6.0 Ur Specific [place] >= 1.030 Urine Protein Negative Urine Glucose (UA) Negative Urine Ketones 1+ Urine Blood 2+ A Urine Nitrate Negative Urine Bilirubin Negative Urine Urobilinogen 0.2 Ur Leukocyte Esterase Negative Urine RBC 20-50 Urine WBC 3-5 Ur Squamous Epith Cells 5-10 Urine Bacteria 1+ Urine Mucus 4+ DS: Diagnosis Discharge Diagnosis (1) Colitis: Status: Acute Code(s): K52.9 - Noninfective gastroenteritis and colitis, unspecified (2) Abdominal pain, RLQ: Status: Resolved Code(s): R10.31 - Right lower quadrant pain (3) Elevated bilirubin: Status: Acute Code(s): R17 - Unspecified jaundice Meds Home Medications and Allergies Home Medications ?Medication ?Instructions ?Recorded ?Confirmed ?Type ibuprofen 400 mg tablet 400 mg PO Q6H PRN pain, feve r #30 12/19/23 09/13/25 Rx tabs amoxicillin 875 mg-potassium 1 tab PO Q12H #8 tabs 10/27 Rx clavulanate 125 mg tablet New Prescriptions to Start Prescriptions: amoxicillin-pot clavulanate Marilee Parry Allergies Allergy/AdvReac Type Severity Reaction Status Date / Time No Known Allergies Allergy Verified 12/19/23 08:12 Discharge Plan Disposition Patient Disposition: Home, Self-Care Condition: Good Follow up Plan Follow up with: Sudeep Brush MD [Staff Physician, General Surgery] - 09/21/25 10:15 am Prescriptions/Medication Reconciliation: New amoxicillin-pot clavulanate 875-125 mg tablet 1 tab PO Q12H Qty: 8 0RF Continued ibuprofen 400 mg tablet 400 mg PO Q6H PRN (Reason: pain, fever) Qty: 30 0RF Problem Reconciliation Problems Reviewed?: Yes Patient Discharge Instructions ACTIVITY: Continue current activity DIET: advance to your usual diet Patient Instructions: DI for Abdominal Pain in Adults, DI for Colitis Print Language: Serbian Providers Primary Care Provider: Provider,Referral Admit Provider: Trevor Wayne Attending Provider: Trevor Wayne
--- NOTE | 2025-09-15 10:04 | SW/DCPLANNER ---
Spoke with patient on the phone. patient stated that he is doing good. Patient stated that he is aware of his upcoming appointment. Patient stated that he was able to mushroom picker his new medicine at [facility]. Patient stated that he has no concerns or questions at this time. Primitivo Wells
== END 2025-09-14 17:23 | disposition home or self-care (01) ==
LOC: ER 20:49 → 2ND 21:27
PROVIDERS: Nurse Practitioner Acute Care; Admitting Provider Internal Medicine Adolescent Medicine; Emergency Provider Student in an Organized Health Care Education/Training Program; Visit Provider Internal Medicine Adolescent Medicine
DX: K52.9 Noninfective gastroenteritis and colitis, unspecified (principal); R17 Unspecified jaundice; R31.9 Hematuria, unspecified; F17.290 Nicotine dependence, other tobacco product, uncomplicated
CPT/HCPCS: 36415; 74177; 80053; 81001; 83605; 83690; 85025; 86140; 96361; 96365; 96375; 96376; 99285; G0378; J1885; J2270; J2543; J7120; Q9967

== ENCOUNTER 2025-09-21 10:34 | Outpatient (CLI) | payer OTHER, SELFPAY ==
[2025-09-21 11:24] LABS: Hematocrit 40.0 % (42.0-52.0); Hemoglobin 13.9 g/dL (14.1-18.0); Immature Granulocytes % 0.5 %; Mean Corpuscular HGB Conc 34.8 g/dL (31.8-35.4); Mean Corpuscular Hemoglobin 31.3 pg (27.0-31.2); Mean Corpuscular Volume 90.1 fl (80-94); Nucleated Red Blood Cells % 0 %; Platelet Count 218 K/mm3 (142-424); Red Blood Count 4.44 M/mm3 (4.60-6.20); Red Cell Distribution Width-SD 42.2 fL; White Blood Count 8.6 K/mm3 (4.8-10.8)
[2025-09-21 11:27] LABS: Alanine Aminotransferase 33 U/L (12-78); Albumin Level 4.8 g/dl (3.5-5.0); Albumin/Globulin Ratio 2.0 (1.1-1.8); Alkaline Phosphatase 53 U/L (38-126); Anion Gap 8.3 mEq/L (5-15); Aspartate Amino Transferase 34 U/L (17-59); Bilirubin,Total 1.6 mg/dl (0.2-1.3); Blood Urea Nitrogen 15 mg/dl (9-20); Calcium 9.7 mg/dl (8.4-10.2); Carbon Dioxide 23 mmol/L (22.0-30.0); Chloride 106 mmol/L (98-107); Creatinine,Serum 0.90 mg/dl (0.66-1.25); Estimated Glomerular Filt Rate 94 ml/min (>60); GFR (African American) 114 ML/MIN (>60); Globulin 2.4 g/dL (1.3-3.2); Glucose 111 mg/dl (74-100); Potassium 4.3 mmoL/L (3.5-5.1); Sodium 133 mmol/L (136-145); Total Protein,Serum 7.2 g/dl (6.3-8.2)
[2025-09-21 15:40] LABS: POC Glucose,Bedside 120 gm/dL (70-110)
== END 2025-09-21 23:59 | disposition home or self-care (01) ==
PROVIDERS: PCP Family Medicine; Visit Provider Surgery
DX: R10.31 Right lower quadrant pain (principal)
CPT/HCPCS: 36415; 80053; 82962; 85025

== ENCOUNTER 2025-09-21 11:08 | Emergency (ER) | payer OTHER, SELFPAY ==
[2025-09-21] VITALS (9 sets, daily range): BP systolic 110–153; BP diastolic 71–102; PULSE 44–57; RESP 15–23; TEMP 36.6; O2SAT 97–100; BMI 32.5
--- NOTE | 2025-09-21 11:12 | XR_ITS ---
FINAL REPORT CLINICAL HISTORY: AMS FINDINGS: A portable view of the chest is obtained. There is no prior exam for comparison. Cardiac and mediastinal silhouettes are normal. The lungs are clear. There is no pleural effusion or pneumothorax. IMPRESSION: No acute process on this portable exam. Reviewed, Interpreted and Dictated by Bernie Zheng MD Transcribed by Diana Robles Authenticated and [facility]
--- NOTE | 2025-09-21 11:12 | XR_ITS ---
FINAL REPORT CLINICAL HISTORY: abdominal pain, RLQ, evlauate for pneumoperitoneum FINDINGS: A single supine view of the abdomen was obtained. There is no prior exam for comparison. Oral contrast material is noted within the stomach and distal small bowel. The bowel gas pattern is otherwise nonspecific but nonobstructive. No upright view provided. No free air seen on supine view. There are no renal stones. A small radiodensity projected over the left iliac crest could be foreign body in or on the soft tissues. Osseous structures are within normal limits. IMPRESSION: Nonspecific but nonobstructive bowel gas pattern. Reviewed, Interpreted and Dictated by Bernie Zheng MD Transcribed by Diana Robles Authenticated and [facility]
--- NOTE | 2025-09-21 11:14 | ECG_ITS ---
APPROVED REPORT Exam: Resting ECG HR:63 bpm ECG Measurements Heart Rate 63 AXES WV 148 P 56 QRSd 94 QRS 78 QT 418 T 48 QTc 426 Conclusion SINUS RHYTHM WITH SINUS ARRHYTHMIA NORMAL ECG UNCONFIRMED REPORT Normal sinus rhythm. No ST elevation or depression. QTc 426 Electronically signed by : SARAH BENITEZ, 09/22/2025 14:19:19
--- NOTE | 2025-09-21 11:14 | HMH.EDGENADL ---
Discharge Plan Disposition Patient Disposition: Home, Self-Care Condition: Fair Prescriptions Prescriptions: No Action No Known Home Medications Referrals Follow up/Referrals: Dalton Santiago MD [Primary Care Provider, Family Practice] - See instructions Activity Restrictions/Add. Instructions Additional Instructions/Restrictions: Your CT scan today shows improving inflammation of the bowel. There is no evidence of appendicitis. I do encourage you to follow with Dr. Brush as scheduled. If you develop any new or worsening symptoms, or if you become concerned for your health for any reason, return to the emergency department for evaluation Clinical Impressions Clinical Impression: Abdominal pain, Nausea & vomiting Instructions Patient Instructions: DI for Syncope in Adults (Fainting), DI for Syncope in Children (Fainting) Print Language Print Language: Nam[place]ian Discharge ED Provider: Jarad Cormier General Adult HPI General Chief complaint: Syncope Stated complaint: SYNCOPE Time Seen by Provider: 09/21/25 11:12 History of Present Illness HPI narrative: Sergio Delgado is a 40y male with a recent admission for colitis versus appendicitis and was discharged on Friday of this past week who presents to the emergency department after a rapid response was called to the lab for syncope versus seizure. Rapid response was called and arrived to the outpatient lab and electromyographic technician states that he was getting lab work when his eyes rolled back and arms dixon up. He did not hit his head. He was minimally responsive at that point but was able to get up and move to the wheelchair. He is alert and oriented at this time but complaining of abdominal pain. Per , this morning he was complaining of worsening right lower quadrant abdominal pain as well as nausea and vomiting and had drank oral contrast for CT scan at 1045 this morning and was post have the scan 2 hours later. Related Data Home Medications ?Medication ?Instructions ?Recorded ?Confirmed No Known Home Medications 09/21/25 09/21/25 Allergies Allergy/AdvReac Type Severity Reaction Status Date / Time No Known Allergies Allergy Verified 09/21/25 10:16 [facility] Disclaimer: The information contained in this section may have been updated after the patient was seen, as this information can be updated by other users. Medical History Hematuria Body aches Congested nose Encounter for laboratory testing for COVID-19 virus Low back strain Need for tetanus booster Thumb contusion Surgical History H/O brain surgery Family History (Updated 09/21/25 @ 11:25 by Nadeen Pavon RN) Other No significant family history Social History Smoking Status: Current every day smoker tobacco type: smokeless tobacco second hand exposure: No alcohol intake: never current occupational status: employed Travel in the last 8 weeks?: Inside the [place] household members: spouse and children housing: house caffeine: No Have you lived/traveled outside [place] in past 30 days?: No Contact w/someone who lives/traveled outside [place] past 30 days?: No Exposure to someone with infectious disease in past 14 days?: No Do you have a fever (greater than 100.4 F or 38 C)?: No Have you tested positive for COVID-19?: No Exposed to someone with COVID-19 in past 14 days?: No Do you have a sore throat?: No Do you have a cough?: No Do you have any weakness?: No Do you have any diarrhea?: No Are you experiencing any unusual bleeding?: No Do you have any muscle aches/pain?: No Do you have any abdominal pain?: No Are you experiencing loss of taste or smell?: No Other Medical History Have you received the Flu Vaccine for this season: No Have you received the Pneumonia Vaccine: No ROS Obtained: Yes Systems reviewed as appropriate & no additional complaints except as documented Physical Exam General General appearance: alert Comment: Awake, answering questions Head Head exam: atraumatic Eye Eye exam: Present normal appearance and PERRL ENT ENT exam: Present normal external ear exam Neck Neck exam: Present full ROM Chest Chest inspection: Present symmetric chest wall rise Respiratory Respiratory exam: Present normal lung sounds bilaterally; Absent respiratory distress, wheezes or stridor Cardiovascular Cardiovascular exam: Present regular rate and normal rhythm Abdominal Exam Abdominal exam: Present soft, tenderness (Right upper quadrant and right lower quadrant) and guarding (Right lower quadrant); Absent distention exam: Present deferred Extremities Exam Extremities exam: Present normal inspection Back Exam Back exam: Present normal inspection Neurological Exam Neurological exam: Present alert, oriented X3 and other (No focal neurological deficits) Psychiatric Psychiatric exam: Present normal affect Skin Skin exam: Present warm and dry Medical Decision Making Medical Records Screening: Per USPSTF and CDC recommendations, given the prevalence of disease in our region, it is our hospital?s policy to screen for HIV and viral Hepatitis for all patients aged 18 and over and those with ongoing risk factors. Luis Inquiry Pt receiving controlled substance: No Vital Signs: 09/21/25 11:25 09/21/25 11:25 09/21/25 11:31 Temperature 97.9 F 97.9 F Temperature Source Oral Pulse Rate 50 L 57 L Pulse Rate [Right] 50 L Respiratory Rate 20 20 17 Blood Pressure 153/102 H 123/73 Blood Pressure [Right Arm] 153/102 H Blood Pressure Mean [Right Arm] 119 02 Sat by Pulse Oximetry 99 99 99 Oxygen Delivery Method 09/21/25 11:32 09/21/25 12:00 09/21/25 12:30 Temperature Temperature Source Pulse Rate 44 L 57 L 47 L Pulse Rate [Right] Respiratory Rate 23 15 Blood Pressure 123/73 126/78 110/71 Blood Pressure [Right Arm] Blood Pressure Mean [Right Arm] 02 Sat by Pulse Oximetry 99 100 99 Oxygen Delivery Method Room Air 09/21/25 13:00 09/21/25 13:30 09/21/25 14:00 Temperature Temperature Source Pulse Rate 52 L 44 L 45 L Pulse Rate [Right] Respiratory Rate Blood Pressure 114/76 127/83 134/83 Blood Pressure [Right Arm] Blood Pressure Mean [Right Arm] 02 Sat by Pulse Oximetry 99 100 99 Oxygen Delivery Method Room Air Room Air Room Air 09/21/25 15:07 Temperature 97.9 F Temperature Source Pulse Rate 45 L Pulse Rate [Right] Respiratory Rate 18 Blood Pressure 117/97 H Blood Pressure [Right Arm] Blood Pressure Mean [Right Arm] 02 Sat by Pulse Oximetry Oxygen Delivery Method Lab Data Lab Results 09/21/25 11:20: WBC 10.8 D, RBC 4.47 L, Hgb 14.1, Hct 40.1 L, MCV 89.7, MCH 31.5 H, MCHC 35.2, RDW 12.9, Plt Count 241, MPV 11.1 H, Neut % (Auto) 56.9, Lymph % (Auto) 27.1, Rankin % (Auto) 8.9, Eos % (Auto) 5.7, Baso % (Auto) 0.8, Neut # (Auto) 6.1, Lymph # (Auto) 2.9, Rankin # (Auto) 1.0, Eos # (Auto) 0.6 H, Baso # (Auto) 0.1, Sodium 134 L, Potassium 4.1, Chloride 102, Carbon Dioxide 26, Anion Gap 10.1, BUN 15, Creatinine 1.10 D, Estimated Creat Clear 139, Estimated GFR 75, Est GFR ( Amer) 90 D, Glucose 118 H, Calcium 9.7, Magnesium 2.0, Total Bilirubin 1.7 H, AST 33, ALT 32, Alkaline Phosphatase 54, Troponin I < 0.01, C-Reactive Protein < 0.3, Total Protein 7.6, Albumin 4.9, Globulin 2.7, Albumin/Globulin Ratio 1.8, Lipase 100 09/21/25 12:54: Lactate 1.0 09/21/25 14:12: Troponin I < 0.01 09/21/25 11:20 09/21/25 11:20 Orders (Tests/Meds): ED MEDICATIONS Discontinued Medications Generic Name Dose Route Start Last Admin Trade Name Flor PRN Reason Stop Dose Admin Lactated Ringer's 1,000 mls @ 999 mls/hr 09/21/25 11:12 09/21/25 13:20 Lactated Ringer's 1000 Ml Bag IV 09/21/25 12:12 Infused .Q1H1M ONE Infusion Iopamidol 75 ml 09/21/25 12:52 09/21/25 12:52 Iopamidol-370 (76%);100ml Bottle IV 09/21/25 12:53 75 ml ONCE ONE Administration Morphine Sulfate 4 mg 09/21/25 13:24 09/21/25 13:45 Morphine 4mg/Ml Syringe IV 09/21/25 13:25 4 mg ONCE ONE Administration Sodium Chloride 10 ml 09/21/25 12:52 09/21/25 12:52 Sodium Chloride 0.9% 10ml Syr (Rad Only) IV 09/21/25 12:53 10 ml ONCE ONE Administration ORDERS Category Date Time Status CT abdomen pelvis w con Stat Cat Scan 09/21/25 11:58 Completed CXR --portable [XR chest portable] Stat Exams 09/21/25 11:12 Completed KUB (single view) [XR KUB] Stat Exams 09/21/25 11:12 Completed CBC w/Auto Diff [Complete Blood Count Auto Diff] Stat Lab 09/21/25 11:20 Completed CMP [Comprehensive Metabolic Panel] Stat Lab 09/21/25 11:20 Completed CRP [C-Reactive Protein] Stat Lab 09/21/25 11:20 Completed Lactic Acid Stat Lab 09/21/25 12:54 Completed Lipase Stat Lab 09/21/25 11:20 Completed Magnesium Stat Lab 09/21/25 11:20 Completed Troponin I Q3H Lab 09/21/25 14:12 Completed Troponin I Stat Lab 09/21/25 11:20 Completed ECG Data Tracing #1: I reviewed this ECG and interpreted as documented below: Normal sinus rhythm. No ST elevation or depression. QTc normal at 426 Medical Decision Narrative: Sergio Delgado is a 40y male with a recent admission for colitis versus appendicitis and was discharged on Friday of this past week who presents to the emergency department after a rapid response was called to the lab for syncope versus seizure. Rapid response was called and arrived to the outpatient lab and electromyographic technician states that he was getting lab work when his eyes rolled back and arms dixon up. He did not hit his head. He was minimally responsive at that point but was able to get up and move to the wheelchair. He is alert and oriented at this time but complaining of abdominal pain. Per , this morning he was complaining of worsening right lower quadrant abdominal pain as well as nausea and vomiting and had drank oral contrast for CT scan at 1045 this morning and was post have the scan 2 hours later. On arrival, patient is hemodynamically stable, borderline mildly bradycardic, oxygen saturation appropriate on room air. Afebrile. Physical exam, stated above, revealed a nontoxic-appearing male in no respiratory distress. He is alert and answering my questions appropriately. He is able to move freely in the stretcher. He has tenderness in the right lower quadrant and right upper quadrant but abdomen is not peritonitic. Cardiopulmonary exam without wheezing, rales or rhonchi. No murmurs or rubs. Differential diagnosis includes, but is not limited to: Acute appendicitis, colitis, vasovagal syncope, orthostatic syncope, cardiac syncope, myoclonic jerking, electrolyte derangement, low concern for seizure at this time but is still within the realm of possibility. The most morbid conditions were considered and workup was based on these. Patient's EKG without evidence of ischemia, QTc prolongation or WPW. Hematologic labs show no leukocytosis with white blood cell count of 10.8, hemoglobin normal at 14.1, hematocrit 40.1, platelets within normal limits, mildly low sodium of 134 but electrolytes otherwise unremarkable and nonactionable. No CHANTAL. Glucose of 118. [id number] glucose upon arrival was 120. Lactate normal at 1.0. Magnesium normal at 2.0. Bilirubin is chronically elevated and near baseline at 1.7. Liver enzymes within normal limits. Troponin negative at less than 0.01 x 2. CRP negative at less than 0.3. Lipase normal at 100. Patient was given oral contrast at approximately 1043 this morning and was supposed to wait 2 hours prior to obtaining his CT scan, which would have occurred at 1243. Will order CT abdomen pelvis with IV contrast to take place at 1243, however in the meantime we will obtain KUB and chest x-ray to rule out pneumoperitoneum given patient's recent history of appendicitis/colitis. X-rays were interpreted by me personally. There is no evidence of pneumoperitoneum. There is a nonobstructive bowel gas pattern. No other acute findings within the chest. See radiology report for details. CT abdomen pelvis was obtained and interpreted by me personally. Normal-appearing appendix. Resolution of previously seen proximal colitis. On reassessment, patient remains in stable condition and is alert and in no distress. I have very low concern for seizure activity and feel that he likely had a vasovagal syncopal episode in the setting of getting his blood work drawn earlier today. With resolving colitis and no evidence of appendicitis with reassuring laboratory workup, I do feel the patient is appropriate for discharge at this time. Return precautions were given. All questions were answered. He demonstrated understanding and was in agreement this plan. He was then discharged from the emergency department in stable condition. Critical Care Critical Care Time Critical Care Time: No
[2025-09-21 11:27] LABS: Hematocrit 40.1 % (42.0-52.0); Hemoglobin 14.1 g/dL (14.1-18.0); Immature Granulocytes % 0.6 %; Mean Corpuscular HGB Conc 35.2 g/dL (31.8-35.4); Mean Corpuscular Hemoglobin 31.5 pg (27.0-31.2); Mean Corpuscular Volume 89.7 fl (80-94); Nucleated Red Blood Cells % 0 %; Platelet Count 241 K/mm3 (142-424); Red Blood Count 4.47 M/mm3 (4.60-6.20); Red Cell Distribution Width-SD 42.1 fL; White Blood Count 10.8 K/mm3 (4.8-10.8)
[2025-09-21] MEDS: LACTATED RINGERS 1000ML 1,000 ML 999 ML IV (11:43)
[2025-09-21 11:49] LABS: Alanine Aminotransferase 32 U/L (12-78); Albumin Level 4.9 g/dl (3.5-5.0); Albumin/Globulin Ratio 1.8 (1.1-1.8); Alkaline Phosphatase 54 U/L (38-126); Anion Gap 10.1 mEq/L (5-15); Aspartate Amino Transferase 33 U/L (17-59); Bilirubin,Total 1.7 mg/dl (0.2-1.3); Blood Urea Nitrogen 15 mg/dl (9-20); Calcium 9.7 mg/dl (8.4-10.2); Carbon Dioxide 26 mmol/L (22.0-30.0); Chloride 102 mmol/L (98-107); Creatinine Clearance Estimated 139 mL/min (50-200); Creatinine,Serum 1.10 mg/dl (0.66-1.25); Estimated Glomerular Filt Rate 75 ml/min (>60); GFR (African American) 90 ML/MIN (>60); Globulin 2.7 g/dL (1.3-3.2); Glucose 118 mg/dl (74-100); Lipase 100 U/L (23-300); Magnesium 2.0 mg/dl (1.6-2.3); Potassium 4.1 mmoL/L (3.5-5.1); Sodium 134 mmol/L (136-145); Total Protein,Serum 7.6 g/dl (6.3-8.2)
--- NOTE | 2025-09-21 11:57 | PC.NURSE ---
Rounded on patient, no needs voiced at this time.
--- NOTE | 2025-09-21 11:58 | CT_ITS ---
FINAL REPORT TECHNIQUE: Thin section axial images are obtained through the abdomen and pelvis after intravenous contrast. Reconstruction images were obtained from the axial data. Exam was performed using dose reduction techniques. CLINICAL HISTORY: RLQ pain, possible appendicitis COMPARISON: 09/13/2025 FINDINGS: LUNG BASES: Lung bases are clear. Heart size is normal. LIVER: Homogeneous. No focal lesion. GALLBLADDER/BILIARY SYSTEM: Gallbladder is present. No gallstones. No biliary dilatation. SPLEEN: Unremarkable. PANCREAS: Unremarkable. ADRENALS: Unremarkable. KIDNEYS/URETERS/BLADDER: No hydronephrosis, renal mass, or renal stone. Unremarkable urinary bladder. GI TRACT: No small bowel obstruction or dilatation. Normal appendix. Previously seen wall thickening of the cecum has resolved. Remaining colon is unremarkable. PELVIC ORGANS: Prostate unremarkable. LYMPH NODES/RETROPERITONEUM/MESENTERY: No lymphadenopathy. No abdominal aortic aneurysm. ABDOMINAL WALL: The abdominal wall is intact. FREE FLUID: No ascites. BONES: No acute osseous abnormality. IMPRESSION: Normal appendix. No evidence of appendicitis. Resolution of previously seen proximal colitis. Reviewed, Interpreted and Dictated by Bernie Zheng MD Transcribed by Diana Robles Authenticated and [facility]
[2025-09-21 12:02] LABS: C-Reactive Protein < 0.3 mg/L (0-4); Troponin I < 0.01 ng/ml (0.00-0.034)
--- NOTE | 2025-09-21 12:36 | PC.NURSE ---
patient gone to CT at this time.
[2025-09-21] MEDS: IOPAMIDOL-370 (76%);100ML BOTTLE 75 ML IV (12:52)
[2025-09-21] MEDS: SODIUM CHLORIDE 0.9% 10ML SYR (RAD ONLY) 10 ML IV (12:52)
[2025-09-21] MEDS: MORPHINE 4MG/ML SYRINGE 4 MG IV (13:45)
--- NOTE | 2025-09-21 14:18 | PC.NURSE ---
Repeat trop sent at 8460
[2025-09-21 14:54] LABS: Troponin I < 0.01 ng/ml (0.00-0.034)
== END 2025-09-21 15:15 | disposition home or self-care (01) ==
PROVIDERS: Emergency Provider Student in an Organized Health Care Education/Training Program; PCP Family Medicine
DX: R10.11 Right upper quadrant pain (principal); R10.31 Right lower quadrant pain; R11.2 Nausea with vomiting, unspecified; R55 Syncope and collapse; F17.290 Nicotine dependence, other tobacco product, uncomplicated
CPT/HCPCS: 71045; 74018; 74177; 80053; 83605; 83690; 83735; 84484; 85025; 86140; 93005; 96361; 96374; 99285; J2270; J7120; Q9967